=== PATIENT | male | born 1970 | race African-American/Black ===

== ENCOUNTER 2021-04-10 09:44 | Emergency (ER) | payer BC, OTHER ==
[2021-04-10] MEDS ORDERED: Ketorolac Tromethamine 30 MG/ML VIAL ONE (11:01)
== END 2021-04-10 11:07 | disposition home or self-care (01) ==
LOC: CSHERS 09:44
DX: M54.42 Lumbago with sciatica, left side (principal); I10 Essential (primary) hypertension
CPT/HCPCS: 96372; 99283; J1885

== ENCOUNTER 2021-09-06 21:05 | Emergency (ER) | payer BC ==
[2021-09-06] MEDS ORDERED: Ketorolac Tromethamine 30 MG/ML VIAL ONE (22:02)
== END 2021-09-06 22:29 | disposition home or self-care (01) ==
LOC: CSHERS 21:05
DX: M54.9 Dorsalgia, unspecified (principal); I10 Essential (primary) hypertension; Z79.899 Other long term (current) drug therapy
CPT/HCPCS: J1885